=== PATIENT | male | born 2000 | race Caucasian/White ===

== ENCOUNTER → 2020-10-09 10:25 | Outpatient (BNVA) | payer OTHER, SELFPAY | PROVIDERS: Visit Provider Internal Medicine | DX: R55 Syncope and collapse (principal); Z91.81 History of falling; Z87.828 Personal history of other (healed) physical injury and trauma | CPT/HCPCS: 99202 ==

== ENCOUNTER 2023-06-18 09:10 | Outpatient (AMB) | payer OTHER, SELFPAY ==
--- NOTE | 2023-06-18 09:10 | AM.OFFWIN_ITS ---
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 Pt suffers from Exercise induced Asthma and uses his Rescue Inhaler prior to exercise. He is currently transitioning from Peds to Adults, and does not have PCP. Reports that his Asthma is otherwise well controlled with no recent Hospitalization. No complains or concerns today. PFSH Social History Patient Tobacco Use Status: Never used Tobacco Review of Systems Const All systems reviewed & are unremarkable except as noted in HPI and below Physical Exam Vital Signs: Last Vital Signs Temp 97.6 F 06/18/23 09:18 Pulse 69 06/18/23 09:18 BP 118/70 06/18/23 09:18 Pulse Ox 96 06/18/23 09:18 Oxygen Delivery Method Room Air 06/18/23 09:18 BMI result Body Mass Index 27.5 Const General: comfortable and no acute distress Orientation/consciousness: patient oriented x3 HEENT Head: Yes normocephalic Resp Effort & Inspection: normal respiratory effort and able to speak in complete sentences Auscultation: clear to auscultation bilaterally Cardio Rate: regular rate Rhythm: regular rhythm Neuro General: patient oriented x3 Gait exam (Neuro): Normal gait present Psych Speech and movement: Normal speech and movement present Assessment & Plan Assessment & Plan (1) Exercise-induced asthma: Code(s): J45.990 - Exercise induced bronchospasm Plan: - Use Inhaler as prescribed - Avoid Triggers - Establish care with new PCP Medications: New albuterol sulfate 90 mcg/actuation 2 puffs inhalation Q4-6H PRN 8.5 grams 1RF shortness of breath or wheezing J45.990 - Exercise induced bronchospasm Coding Level of Care Code New Pt Level 3 (66161) Diagnoses Exercise-induced asthma J45.990 Time Spent (min) 10
[2023-06-18 09:18] VITALS: BP 118/70; PULSE 69; TEMP 36.4; O2SAT 96; BMI 27.5
== END 2023-06-18 10:00 | disposition home or self-care (01) ==
PROVIDERS: Visit Provider Nurse Practitioner Family
DX: J45.990 Exercise induced bronchospasm (principal)
CPT/HCPCS: 99203

== ENCOUNTER 2023-09-30 15:39 | Outpatient (REF) | payer OTHER, SELFPAY ==
[2023-09-30 15:45] LABS: MANUAL DIFF FLAG NO
[2023-09-30 15:48] LABS: Appearance Urine Clear; Basophils Absolute Auto 0.1 X10*3/uL (0.0-0.2); Basophils Percent Auto 1.3 % (0-2); Color Urine Yellow; Eosinophils Absolute Auto 0.6 X10*3/uL (0.0-0.4); Eosinophils Percent Auto 11.3 % (0-4); Glucose Urine UA Negative (Negative); Hematocrit 44.8 % (42.0-52.0); Hemoglobin 15.7 g/dl (14.0-18.0); Imm Gran Abs Auto 0.01 X10*3/uL (0.00-0.03); Imm Gran Pct Auto 0.2 % (0.0-0.4); Leukocyte Esterase Urine Negative (Negative); Lymphocytes Absolute Auto 2.1 X10*3/uL (1.2-4.9); Lymphocytes Percent Auto 37.6 % (20-40); Mean Corpuscular Hemoglobin 30.1 pg (27.0-33.0); Mean Corpuscular Volume 85.8 fL (80.0-98.0); Mean Platelet Volume 10.8 fL (9.4-12.4); Monocytes Absolute Auto 0.4 X10*3/uL (0.1-1.2); Monocytes Percent Auto 7.6 % (2-11); Neutrophils Absolute Auto 2.3 x10*3/uL (2.0-8.3); Nitrite Urine Negative (Negative); PH 5.5 (5.0-9.0); Platelet Count 264 X10*3/uL (160-400); Red Blood Count 5.22 X10*6/uL (4.60-5.80); Red Cell Distribution Width 12.3 % (11.0-16.0); Specific Gravity - Urine 1.025 (1.005-1.025); Urine Blood Negative (Negative); Urine Ketones Negative (Negative); Urine Protein Negative (Neg-Trace); White Blood Count 5.5 X10*3/uL (4.8-10.8)
[2023-09-30 15:53] LABS: Bacteria Urine None Seen (None Seen); Hyaline Casts Urine 0-2 /LPF (0-2); RBC Urine 0-2 /HPF (0-2); Squamous Epithelial Cell Urine 0-2 /HPF (0-2); WBC Urine 0-5 /HPF (0-5)
[2023-09-30 16:01] LABS: Alanine Aminotransferase 23 U/L (0-40); Albumin Level 4.9 g/dL (3.5-5.0); Alkaline Phosphatase 90 U/L (39-117); Anion Gap 12 (12-20); Aspartate Amino Transferase 21 U/L (5-37); Blood Urea Nitrogen 17 mg/dL (9-16); Calcium 10.2 mg/dL (8.4-10.2); Carbon Dioxide 28 mmol/L (22-29); Chloride 105 mmol/L (96-108); Estimated Glomerular Filt Rate > 60; Glucose Fasting 88 mg/dL (60-99); Potassium 4.1 mmol/L (3.3-5.1); Sodium 141 mmol/L (135-145); Total Protein 8.1 g/dL (6.5-8.0)
== END 2023-09-30 15:40 | disposition home or self-care (01) ==
LOC: HO.LNP 15:39
PROVIDERS: Visit Provider Internal Medicine
DX: Z00.00 Encounter for general adult medical examination without abnormal findings (principal)
CPT/HCPCS: 80053; 81001; 85025

== ENCOUNTER 2024-09-28 09:40 | Outpatient (REF) | payer OTHER, SELFPAY ==
[2024-09-28 09:42] LABS: MANUAL DIFF FLAG NO
[2024-09-28 10:10] LABS: Basophils Absolute Auto 0.1 X10*3/uL (0.0-0.2); Basophils Percent Auto 1.4 % (0-2); Eosinophils Absolute Auto 0.7 X10*3/uL (0.0-0.4); Eosinophils Percent Auto 11.1 % (0-4); Hematocrit 44.9 % (42.0-52.0); Hemoglobin 15.7 g/dl (14.0-18.0); Imm Gran Abs Auto 0.01 X10*3/uL (0.00-0.03); Imm Gran Pct Auto 0.2 % (0.0-0.4); Lymphocytes Absolute Auto 2.7 X10*3/uL (1.2-4.9); Lymphocytes Percent Auto 41.7 % (20-40); Mean Corpuscular Hemoglobin 30.1 pg (27.0-33.0); Mean Corpuscular Volume 86.2 fL (80.0-98.0); Mean Platelet Volume 10.8 fL (9.4-12.4); Monocytes Absolute Auto 0.7 X10*3/uL (0.1-1.2); Monocytes Percent Auto 10.8 % (2-11); Neutrophils Absolute Auto 2.3 x10*3/uL (2.0-8.3); Neutrophils Percent Auto 34.8 % (45-73); Platelet Count 280 X10*3/uL (160-400); Red Blood Count 5.21 X10*6/uL (4.60-5.80); White Blood Count 6.5 X10*3/uL (4.8-10.8)
[2024-09-28 10:14] LABS: Appearance Urine Clear; Color Urine Yellow; Glucose Urine UA Negative (Negative); Leukocyte Esterase Urine Negative (Negative); Nitrite Urine Negative (Negative); PH 6.5 (5.0-9.0); Urine Blood Negative (Negative); Urine Ketones Negative (Negative); Urine Protein Negative (Neg-Trace)
[2024-09-28 10:21] LABS: Bacteria Urine None Seen (None Seen); Hyaline Casts Urine 0-2 /LPF (0-2); RBC Urine 0-2 /HPF (0-2); Squamous Epithelial Cell Urine 0-2 /HPF (0-2); WBC Urine 0-5 /HPF (0-5)
--- OUTSIDE RECORDS SUMMARY | 2024-09-28 10:48 | XMS_ITS | Encounter Summary ---
Author Organization [facility] Address [address] [place] [id number] Phone Care Team Providers Care Machine Silver Stripper Name Role Phone Alissa Kern MD Primary Care Provider [phone] Encounter Details Date Type Department Care Team (Late st Contact Info) Description 02/09/2014 Documentation [facility] [place] Family Medicine [address] [place] [address] Family Medicine, Physician [address] [place], [place] [phone] Social History Tobacco Use Types Packs/Day Years Used Date Smoking Tobacco: Never Assessed Sex and Gender Information Value Date Recorded Sex Assigned at Not on file Legal Sex Male 4:55 PM EDT Gender Identity Not on file Sexual Orientation Straight 03/05/2022 11 :15 AM EST documented as of this encounter Plan of Treatment Not on file documented as of this encounter Visit Diagnoses Not on filedocumented in this encounter Care Teams Machine Silver Stripper Relationship Specialty Start Date End Date Alissa Kern MD [address] [place] [address] DAR[place] Rosenberg [id number] PCP - General 12/06/16 02/25/23 documented as of this encounter
[2024-09-28 10:52] LABS: Alanine Aminotransferase 66 U/L (0-40); Alkaline Phosphatase 79 U/L (39-117); Anion Gap 12 (12-20); Aspartate Amino Transferase 41 U/L (5-37); Bilirubin Total 2.3 mg/dL (0.0-1.0); Blood Urea Nitrogen 12 mg/dL (9-16); Calcium 9.8 mg/dL (8.4-10.2); Carbon Dioxide 28 mmol/L (22-29); Chloride 104 mmol/L (96-108); Cholesterol 183 mg/dL (<200); Estimated Glomerular Filt Rate > 60; Glucose Fasting 100 mg/dL (60-99); HDL Cholesterol 41 mg/dL (>40); LDL Cholesterol Calculated 113 mg/dL (<100); Potassium 4.1 mmol/L (3.3-5.1); Sodium 140 mmol/L (135-145); Total Protein 8.1 g/dL (6.5-8.0); Triglycerides 145 mg/dL (<150)
== END 2024-09-28 09:41 | disposition home or self-care (01) ==
LOC: HO.LNP 09:40
PROVIDERS: Visit Provider Internal Medicine
DX: Z00.00 Encounter for general adult medical examination without abnormal findings (principal); Z13.6 Encounter for screening for cardiovascular disorders
CPT/HCPCS: 80053; 80061; 81001; 85025

== ENCOUNTER 2024-12-06 07:45 | Outpatient (REF) | payer OTHER, SELFPAY ==
--- OUTSIDE RECORDS SUMMARY | 2024-10-05 05:30 | XMS_ITS ---
Author Organization Rodney Valverde MD Address [address] [place] [id number] Care Team Providers Care Supervisor Poultry Processing Name Role Phone Rodney Valverde Primary Care Provider Allergies Allergen (clinical drug ingredient) Drug/Non Drug Allergy documented on EMR Reaction Allergy Type Onset Date Status trimethoprim Trimethoprim rash Drug Allergy A ctive Substance with sulfonamide structure and antibacterial mechanism of action (substance) Sulfa Antibiotics hives Drug Allergy Active Reason For Referral Reason nasal polyps Diagnosis 1 Nasal polyps (J33.9) Referral Organization Rodney Valverde MD Referring Provider First Name Rodney Referring Provider Last Name Abram Referring Provider Speciality Internal M edicine Ref[facility] [place] Referred Provider Specialty Allergy/Immu nology General Notes Jossie Perez 0 10/19/2024 08:13:09 AM >info faxed phone [phone] Annette 11/02/2024 11:44:42 AM >appt is at their [place] office [phone] Annette 11/02/2024 11:51:49 AM >called patient with above info Referral Priority Routine Referral Appointment Date 11/10/2024 REASON FOR VISIT annual visit/must see Com meta labs Medications Medication SIG (Take, Route, Frequency, Duration) Notes Start Date End Date Status Flonase Allergy Relief 50 MCG/ACT 1 spray in each nostril Nasally Once a day for 30 day(s) Not-Taking Albuterol Sulfate HFA 108 (90 Base) MCG/ACT 1 puff as needed Inhalation every 4 hrs Active Ketoconazole 2 % 1 application Externally Once a day for 14 days 10/05/2024 Active Social History Tobacco Use: Social History Observation Description Date Details (start date - stop date) Never Smoker NA - NA Tobacco Use/Smoking Question Answer Notes Patient is a nonsmoker Additional Findings: Tobacco Non-User Cu rrent non-smoker, currently using no form of tobacco Alcohol Screen Question Answer Notes Did you have a drink containing alcohol in the p ast year? No Points 0 Interpretation Negative Problems Problem Type SNOMED Code ICD Code Onset Dates Problem Status W/U Status Risk Notes Problem Multiple polyps of nasal cavity and/or nasal sinus (disorder) (8058484927) Nasal polyps (J33.9) Active confirmed Problem Lymphocytosis (31345740) Lymphocytosis (D72.820) Active confirmed Vital Signs Blood pressure systolic 112 mm Hg 10/06/19 25 Blood pressure diastolic 70 mm Hg 025 Height 80 in 10/05/2024 Weight 285 lbs 10/05/2024 BMI 31.31 kg/m2 10/05/2024 weight is up 26 pounds since 09-30-23 Encounters Encounter Location Date Provider Diagnosis Rodney Valverde MD [address] [place] [address] [address] [place], [place] [phone] 10/05/2024 Rodney Valverde Elevated LFTs R79.89 ; Adult general medical exam Z00.00 ; Nasal polyps J33.9 ; Lymphocytosis D72.820 ; Tinea B35.9 and Depression screen Z13.31 Assessments Encounter Date Diagnosis (ICD Code) Assessment Notes Treatment Notes Treatment Clinical Notes Section Notes 10/05/2024 Elevated LFTs (ICD-10 - R79.89) may be from weight gain, will continue to monitor, pending future labs 10/05/2024 Adult general medical exam (ICD-10 - Z00.00) labs reviewed and discussed with patient 10/05/2024 Nasal polyps (ICD-10 - J33.9) referral to corrosion control technician 10/05/2024 Lymphocytosis (ICD-10 - D72.820) will continue to monitor, pending future labs 10/05/2024 Tinea (ICD-10 - B35.9) patient verbalized understanding of medication and directions for use 10/05/2024 Depression screen (ICD-10 - Z13.31) negative screen Plan Of Treatment Medication Medication Name Sig Start Date Stop Date Notes Ketoconazole 2 % 1 application Hydrochloric Manufacturing Supervisor ally Once a day for 14 days 10/05/2024 Treatment Notes Assessment Notes Elevated LFTs may be from weight g mario, will continue to monitor, pending future labs Adult general medical exam labs reviewed and discussed with patient Nasal polyps referral to allergis t Lymphocytosis will continue to mon itor, pending future labs Tinea patient verbalized u nderstanding of medication and directions for use Depression screen negative screen Pending Test Test Name Order Date Complete Blood Count Auto Diff Liver Panel 10/05/2024 Referrals Referral Date Details 10/05/2024 10/05/2024, nasal po lyps, [facility] [place] [facility] [place] Next Appt Details Provider Name:Rodney Campbell ier, 10/06/2025 07:00:00 AM, [address] [place] [address], [address] [place] [address], [phone], Provider Name:Rodney Campbell ier, 10/13/2025 09:30:00 AM, [address] [place] [address], [address], [place], [place], [phone], Progress Notes * John FLOREZDOB:2000 ([age] yo M)Acc No.[id number]:10/05/2024 Progress Notes Patient: John DEAN Provider: Vicenta Valverde MD :2000 A ge:24 Y S ex:Male Date:10/05/2024 Address: [address], [id number] Subjective: * Chief Complaints: * a nnual visit/must see [facility] meta labs * HPI: D epression Screening: PHQ-9 L ittle interest or pleasure in doing things N ot at all, F eeling down, depressed, or hopeless N ot at all, T rouble falling or staying asleep, or sleeping too much N ot at all, F eeling tired or having little energy N ot at all, P oor appetite or overeating N ot at all, F eeling bad about yourself or that you are a failure, or have let yourself or your family down N ot at all, T rouble concentrating on things, such as reading the newspaper or watching television N ot at all, M oving or speaking so slowly that other people could have noticed; or the opposite, being so fidgety or restless that you have been moving around a lot more than usual N ot at all, T houghts that you would be better off or of hurting yourself in some way N ot at all, T otal Score 0 . I nterpretation and Intervention D epression Screening Findings N egative, F ollow-Up for Depression : review of PHQ-9 found negative result, no follow-up needed. C ommunication Needs: Communication Needs D oes the patient have a hearing impairment N o, D oes the patient have a vision impairment? N o, D oes the patient have a cognition impairment? N o. S ARAVIND Questions: SDOH Questions I n the past year have you been worried about losing housing? N o, I n the past year have you or any family members you live with been unable to get any of the following when it was really needed? Check all that apply: N one. S ymptom(s): patient is a 24 yo male here for annual vist with review of recent labs and follow up of chronic issues. * ROS: G eneral/Constitutional: Change in appetite d enies. C hills d enies. F ever d enies. O phthalmologic: Blurred vision d enies. D ischarge d enies. P ain d enies. E NT: Decreased hearing d enies. S ore throat d enies.?Swollen glands d enies. E ndocrine: Cold intolerance d enies. E xcessive thirst d enies. H eat intolerance d enies. W eight loss d enies. R espiratory: Cough d enies. S hortness of breath at rest d enies. S hortness of breath with exertion d enies. W heezing d enies. C ardiovascular: Chest pain at rest d enies. C hest pain with exertion?denies. I rregular heartbeat d enies. S hortness of breath d enies. ? G astrointestinal: Abdominal pain d enies. C hange in bowel habits d enies. D iarrhea d enies. N ausea d enies. R ectal bleeding d enies. V omiting d enies . G enitourinary: Blood in urine d enies. D ifficulty urinating d enies. F requent urination d enies. M usculoskeletal: Painful joints d enies. W eakness d enies. ? S kin: Dry skin d enies. I tching d enies. D enies?Mole(s), changes in moles, new moles or any lesions of concern. D enies P hotosensitivity. R ion d enies. N eurologic: Dizziness d enies. F ainting d enies. H eadache?denies. * Medical History: * Surgical History: * Hospitalization/Major Diagno stic Procedure: * Family History: F ather: alive 58 yrs. M other: alive 54 yrs. 1 sister(s) . . Denies mental health/substance abuse family history. * Social History: T obacco Use: T obacco Use/Smoking P atient is a n onsmoker, A dditional Findings: Tobacco Non-User C urrent non-smoker, currently using no form of tobacco. D rugs/Alcohol: A lcohol Screen D id you have a drink containing alcohol in the past year? N o, P oints 0 , I nterpretation N egative. M iscellaneous: C affeine: no. Children: no. Exercise: yes, volleyball. Housing: living with relatives. Marital status: single. Occupation: weeks/months/years, unemployed. Travel outside of the [place]: no. * Medications: T akingAlbuterol Sulfate HFA 108 (90 Base) MCG/ACT Aerosol Solution 1 puff as needed Inhalation every 4 hrs Taking Albuterol Sulfate HFA 108 (90 Base) MCG/ACT Aerosol Solution 1 puff as needed Inhalation every 4 hrs Not-Taking/PRNFlonase Allergy Relief 50 MCG/ACT Suspension 1 spray in each nostril Nasally Once a day Medication List reviewed and reconciled with the patientNot-Taking/PRN Flonase Allergy Relief 50 MCG/ACT Suspension 1 spray in each nostril Nasally Once a day Medication List reviewed and reconciled with the patient * Allergies: S ulfa Antibiotics: hivesTrimethoprim: rashyes[Allergies Verified] Objective: * Vitals: H t: 80, Wt: 285, BMI:31.31, BP:112/70, Wt-k.28. weight is up 26 pounds since 09-30-23. * P ast Orders: L ab:UA ClnCatch+Micro w/rflx Cult (Order Date - 09/28/2024) (Collection Date & Time - 09/28/2024 07:15 AM) Value Reference Range Color Urine Yellow - Appearance Urine Clear - PH 6.5 5.0-9.0 - Glucose Urine UA Negative Negative - mg/dL Urine Blood Negative Negative - Specific [place] - Urine 1.020 1.005-1.025 - Urine Protein Negative Neg-Trace - mg/dL Urine Ketones Negative Negative - mg/dL Nitrite Urine Negative Negative - Leukocyte Esterase Urine Negative Negative - RBC Urine 0-2 0-2 - /HPF WBC Urine 0-5 0-5 - /HPF Squamous Epithelial Cell Urine 0-2 0-2 - /HP F Bacteria Urine None Seen None Seen - Hyaline Casts Urine 0-2 0-2 - /LPF L ab:Complete Blood Count Auto Diff (Order Date - 09/28/2024) (Collection Date & Time - 09/28/2024 07:15 AM) Value Reference Range White Blood Count 6.5 4.8-10.8 - X10*3/uL Red Blood Count 5.21 4.60-5.80 - X10*6/uL Hemoglobin 15.7 14.0-18.0 - g/dl Hematocrit 44.9 42.0-52.0 - % Mean Corpuscular Volume 86.2 80.0-98.0 - fL Mean Corpuscular Hemoglobin 30.1 27.0-33.0 - pg Mean Corpuscular HGB Conc 35.0 31.0-36.0 - g/ dl Red Cell Distribution Width 12.0 11.0-16.0 - % Platelet Count 280 160-400 - X10*3/uL Mean Platelet Volume 10.8 9.4-12.4 - fL Neutrophils Percent Auto 34.8 L 45-73 - % Imm Gran Pct Auto 0.2 0.0-0.4 - % Lymphocytes Percent Auto 41.7 H 20-40 - % Monocytes Percent Auto 10.8 2-11 - % Eosinophils Percent Auto 11.1 H 0-4 - % Basophils Percent Auto 1.4 0-2 - % NRBC Pct Auto 0.0 0.0-0.2 - /100WBC Neutrophils Absolute Auto 2.3 2.0-8.3 - x10* 3/uL Imm Gran Abs Auto 0.01 0.00-0.03 - X10*3/uL Lymphocytes Absolute Auto 2.7 1.2-4.9 - X10* 3/uL Monocytes Absolute Auto 0.7 0.1-1.2 - X10*3/ uL Eosinophils Absolute Auto 0.7 H 0.0-0.4 - X10* 3/uL Basophils Absolute Auto 0.1 0.0-0.2 - X10*3/ uL NRBC Abs Auto 0.000 0.0-0.012 - X10*3/uL L ab:Lipid Panel (Order Date - 09/28/2024) (Collection Date & Time - 09/28/2024 07:15 AM) Value Reference Range Triglycerides 145 <150 - mg/dL Cholesterol 183 <200 - mg/dL LDL Cholesterol Calculated 113 H <100 - mg/dL HDL Cholesterol 41 >40 - mg/dL * Examination: G eneral Examination: GENERAL APPEARANCE: w ell developed, well nourished, in no acute distress. HEAD: n ormocephalic, atraumatic. EYES: p upils equal, round, reactive to light and accommodation, sclera non-icteric. EARS: n ormal. ORAL CAVITY: m uc[place] moist. THROAT: c lear. NECK/THYROID: n sandy supple, full range of motion, no cervical lymphadenopathy, no bruits. SKIN: w arm and dry, no suspicious lesions/ with rash on chest. HEART: r egular rate and rhythm, S1, S2 normal, no murmurs.? LUNGS: c lear to auscultation bilaterally. ABDOMEN: s oft, nontender, nondistended, bowel sounds present, normal, no organomegaly , no masses palpable. RECTAL EXAM: n ot examined. MALE GENITOURINARY: c ircumcised, no testicular mass, testes descended bilaterally. EXTREMITIES: n o clubbing, cyanosis, or edema. NEUROLOGIC: n onfocal, motor strength normal upper and lower extremities, sensory exam intact. Assessment: * Assessment: 1. A dult general medical exam - Z00.00 (Primary) 2 . E levated LFTs - R79.89 3 . N alexa polyps - J33.9 4 . L ymphocytosis - D72.820? 5. T inea - B35.9 6 . D epression screen - Z13.31 ? Plan: * Treatment: 2. E levated LFTs L AB: Complete Blood Count Auto Diff (Ordered for 12/05/2024) L AB: Liver Panel (Ordered for 12/05/2024) Notes: may be from weight gain, will continue to monitor, pending future labs 3. N alexa polyps Notes: referral to corrosion control technician Referral To:[facility] All[facility] [place] Allergy/Immunology Reason:nasal polyps 4. L ymphocytosis L AB: Complete Blood Count Auto Diff (Ordered for 12/05/2024) Notes: will continue to monitor, pending future labs 5. T inea Start Ketoconazole Cream, 2 %, 1 application, Externally, Once a day, 14 days, 120, Refills 3. Notes: patient verbalized understanding of medication and directions for use 6. D epression screen Notes: negative screen * Procedure Codes: * * Sign off status: Completed true * Provider: Vicenta Valverde MD Date: 0 10/05/2024 Generated for Mirza arechiga/Courtney/Sobiaitting on: 0 12/06/2024 10:51 AM EDT History and Physical Notes * HPI (History of Present Illness) Category Sub-Category Detail Notes Category Not es Symptom(s) patient is a 24 yo male here for annual vist with review of recent labs and follow up of chronic issues Depression Screening PHQ-9 Little inte rest or pleasure in doing things: Not at all Feeling down, depressed, or hopeless: No t at all Trouble falling or staying asleep, or sl eeping too much: Not at all Feeling tired or having little energy: N ot at all Poor appetite or overeating: Not at all Feeling bad about yourself o r that you are a failure, or have let yourself or your family down: Not at all Trouble concentrating on thi ngs, such as reading the newspaper or watching television: Not at all Moving or speaking so slowly that other people could have noticed; or the opposite, being so fidgety or restless that you have been moving around a lot more than usual: Not at all Thoughts that you would be b urbano off or of hurting yourself in some way: Not at all Total Score: 0 Interpretation and Intervention Depression Hever richards Findings: Negative Follow-Up for Depression: : review of PH Q-9 found negative result, no follow-up needed SDOH Questions SDOH Questions In the past year have you been worried about losing housing?: No In the past year have you or any family members you live with been unable to get any of the following when it was really needed? Check all that apply:: None Communication Needs Communication Needs Does the patient have a hearing impairment: No Does the patient have a vision impairmen t?: No Does the patient have a cognition impair ment?: No Examination Category Sub-Category Detail Notes Category Not es General Examination GENERAL APPEARANCE: well dev eloped, well nourished, in no acute distress HEAD: normocephalic, atrau matic EYES: pupils equal, round, reactive to light and accommodation, sclera non-icteric EARS: normal THROAT: clear NECK/THYROID: neck supple, full ra nge of motion, no cervical lymphadenopathy, no bruits HEART: regular rate and rhy thm, S1, S2 normal, no murmurs LUNGS: clear to auscultatio n bilaterally ABDOMEN: soft, nontender, non distended, bowel sounds present, normal, no organomegaly , no masses palpable NEUROLOGIC: nonfocal, motor stre ngth normal upper and lower extremities, sensory exam intact SKIN: warm and dry, no gloria picious lesions/ with rash on chest EXTREMITIES: no clubbing, cyanosi s, or edema MALE GENITOURINARY: circumcised, no test icular mass, testes descended bilaterally RECTAL EXAM: not examined ORAL CAVITY: mucosa moist Consultation Request Notes Referral Date Referring Provider Referred Provider Not es 10/05/2024 [facility] [place] nasal polyps
[2024-12-06 10:16] LABS: MANUAL DIFF FLAG NO
[2024-12-06 10:25] LABS: Hematocrit 47.9 % (42.0-52.0); Hemoglobin 16.5 g/dl (14.0-18.0); Imm Gran Abs Auto 0.02 X10*3/uL (0.00-0.03); Imm Gran Pct Auto 0.3 % (0.0-0.4); Lymphocytes Absolute Auto 2.7 X10*3/uL (1.2-4.9); Mean Corpuscular HGB Conc 34.4 g/dl (31.0-36.0); Mean Corpuscular Hemoglobin 29.6 pg (27.0-33.0); Mean Corpuscular Volume 85.8 fL (80.0-98.0); NRBC Abs Auto 0.000 X10*3/uL (0.0-0.012); NRBC Pct Auto 0.0 /100WBC (0.0-0.2); Platelet Count 288 X10*3/uL (160-400); Red Blood Count 5.58 X10*6/uL (4.60-5.80); White Blood Count 6.6 X10*3/uL (4.8-10.8)
[2024-12-06 10:44] LABS: Alanine Aminotransferase 40 U/L (0-40); Albumin Level 4.9 g/dL (3.5-5.0); Alkaline Phosphatase 87 U/L (39-117); Aspartate Amino Transferase 35 U/L (5-37); Total Protein 8.1 g/dL (6.5-8.0)
--- OUTSIDE RECORDS SUMMARY | 2024-12-06 10:51 | XMS_ITS | Encounter Summary ---
Author Organization [facility] Address [address] [place] [phone] Phone Care Team Providers Care Aircraft Magneto Mechanic Name Role Phone Alissa Kern MD Primary Care Provider [phone] Encounter Details Date Type Department Care Team (Late st Contact Info) Description 02/09/2014 Documentation [facility] [place] Family Medicine [address] [place] [address] Family Medicine, Physician [address] [place], [place] [phone] Social History Tobacco Use Types Packs/Day Years [...] on filedocumented in this encounter Care Teams Aircraft Magneto Mechanic Relationship Specialty Start Date End Date Alissa Kern MD [address] [place] [address] [place] [id number] PCP - General 12/06/16 02/25/23 documented as of this encounter
== END 2024-12-06 07:46 | disposition home or self-care (01) ==
LOC: HO.LNP 07:45
PROVIDERS: Visit Provider Internal Medicine
DX: D72.820 Lymphocytosis (symptomatic) (principal); R79.89 Other specified abnormal findings of blood chemistry
CPT/HCPCS: 80076; 85025